=== PATIENT | male | born 1960 | race Caucasian/White ===

== ENCOUNTER 2019-12-09 10:36 | Emergency (ER) | payer OTHER | END 2019-12-09 13:18 | disposition other institution (70) | LOC: ED 10:36 | DX: Z02.89 Encounter for other administrative examinations (principal) ==

== ENCOUNTER 2019-12-09 10:36 | Emergency (ER) | payer SELFPAY ==
[~2019-12-09] VITALS: Ht 170.2 cm; Wt 63.5 kg
[2019-12-09 13:18] VITALS: BP 152/93
== END 2019-12-09 13:18 | disposition other institution (70) ==
LOC: ED 10:36
DX: I10 Essential (primary) hypertension (principal); E11.9 Type 2 diabetes mellitus without complications; Z13.9 Encounter for screening, unspecified
CPT/HCPCS: 82962